=== PATIENT | male | born 1970 | race Two or more races ===

== ENCOUNTER 2018-02-14 01:42 | Emergency (ER) | payer OTHER ==
[~2018-02-14] VITALS: Ht 177.8 cm; Wt 79.4 kg
[2018-02-14] MEDS ORDERED: METOCLOPRAMIDE10 MG PO (06:55)
[2018-02-14] MEDS ORDERED: MECLIZINE HCL25 MG PO (06:55)
== END 2018-02-14 08:11 ==
LOC: ER 01:42
DX: H81.13 Benign paroxysmal vertigo, bilateral (principal)

== ENCOUNTER 2022-12-04 19:40 | Emergency (ER) | payer OTHER ==
[~2022-12-04] VITALS: Ht 177.8 cm; Wt 79.4 kg
[~2022-12-04 19:40] MED LIST: MECLIZINE HCL25 MG PO; METOCLOPRAMIDE10 MG PO
[2022-12-04] MEDS ORDERED: TAMS0.4C PO (19:51)
== END 2022-12-04 20:13 | disposition home or self-care (01) ==
LOC: ER 19:40
DX: M54.9 Dorsalgia, unspecified (principal)